=== PATIENT | female | born 1980 | race Caucasian/White ===

== ENCOUNTER 2020-05-10 10:36 | Emergency (ER) | payer SELFPAY ==
[2020-05-10 10:37] VITALS: BP 122/75; PULSE 80; RESP 16; TEMP 37; O2SAT 95; BMI 31.9
[2020-05-10 10:45] VITALS: BP 122/75; PULSE 80; RESP 16; O2SAT 98
--- NOTE | 2020-05-10 11:12 | XRR_ITS ---
PROCEDURE INFORMATION: Exam: XR Left Wrist Exam date and time: 05/10/2020 11:17 AM Age: 39 years old Clinical indication: Injury or trauma; Fall; Blunt trauma (contusions or hematomas); Wrist; Left; Injury date: 05/10/11; Additional info: Deformity TECHNIQUE: Imaging protocol: XR Left wrist. Views: 3 or more views. COMPARISON: No relevant prior studies available. FINDINGS: Bones/joints: Acute severely comminuted and impacted intra-articular fracture of the distal radius with radial displacement and dorsal angulation of the major distal fracture fragment. Acute displaced ulnar styloid avulsion fracture. Stigmata of remote trauma involving the 5th metacarpal. Soft tissues: Soft tissue swelling. XR/XR wrist LT min 3V* [id number] IMPRESSION: 1. Acute severely comminuted and impacted intra-articular fracture of the distal radius with radial displacement and dorsal angulation of the major distal fracture fragment. 2. Acute displaced ulnar styloid avulsion fracture.
--- NOTE | 2020-05-10 11:38 | W.ED.FALL ---
HPI - Fall General: Chief Complaint: Fall Stated Complaint: POSS L ARM FX, BACK PAIN Time Seen by Provider: 05/10/20 10:37 History of Present Illness: HPI Narrative: 39-year-old female who is incarcerated at local skilled nursing fell while in the shower landed on an outstretched left hand is an obvious deformity. Arrives via EMS. Denies striking her head no other injury no loss of consciousness. Later in the visit she also complalined of back pain. MD complaint: fall Onset (ago): minute(s) Fall from: standing Place fall occurred: other (skilled nursing) Loss of consciousness: None Prolonged down time: no Symptoms prior to fall: none Context: tripped/slipped Location of injury: back Location of injury - extremities: Left: forearm (Left wrist distal radius) Quality: sharp Associated symptoms-after fall: Denies abdominal pain, chest pain, confusion, difficulty walking, headache(s), hematuria, lightheadedness, neck pain, numbness, short of breath, vertigo or weakness Review of Systems Const: Denies: fever(s), chills, body aches, change in appetite, fatigue or malaise ENMT: Denies: throat pain, ear or mastoid pain, nasal discharge or nasal congestion Card: Denies: chest pain or lightheadedness Resp: Denies: dyspnea, productive cough or non-productive cough GI: Denies: abdominal pain : Denies: hematuria Musc: Denies: neck pain Skin/Breast: Denies: rash or pruritus Neuro: Denies: headache(s), difficulty walking, vertigo or confusion [facility] Female Reproductive History: Date of last menstrual period: 05/10/20 Physical Exam Const: COMMON NORMALS: no acute distress GENERAL APPEARANCE: cooperative and comfortable ORIENTATION/CONSCIOUSNESS: Yes awake, Yes oriented to person, Yes oriented to place and Yes oriented to time HENMT: COMMON NORMALS: normocephalic, atraumatic, hearing grossly normal bilaterally, external ears normal, EAC's normal, TM's normal bilaterally, Normal nasal mucous membranes and turbinates present, moist oral mucous membranes and oropharynx normal HEAD & SCALP: normocephalic and atraumatic NOSE: Normal nasal mucous membranes and turbinates present EXTERNAL EAR: Yes external ears normal EXTERNAL AUDITORY CANAL: EAC's normal TYMPANIC MEMBRANE: TM's normal bilaterally Eye: COMMON NORMALS: Equal, round and reactive pupils present, EOMs intact bilaterally, conjunctivae normal and no scleral icterus CONJUNCTIVA: Yes conjunctivae normal PUPIL: Yes Equal, round and reactive pupils present Neck/C-Spine: COMMON NORMALS: full ROM, no lymphadenopathy, supple and no JVD Resp: COMMON NORMALS: normal respiratory effort, No retractions, No use of accessory muscles and clear to auscultation bilaterally AUSCULTATION: clear to auscultation bilaterally Cardio: COMMON NORMALS: no JVD, regular rate, regular rhythm and No murmurs present (Cardio) RATE: regular rate RHYTHM: regular rhythm GI: COMMON NORMALS: Soft to palpation and No hepatosplenomegaly present AUSCULTATION: Yes normoactive bowel sounds PALPATION: Yes Soft to palpation, No Tenderness to palpation present (GI), No Guarding due to palpation present (GI) and Yes No hepatosplenomegaly present Back/Pelvis: OTHER: No worsening of pain with palpation along the spine Extremity: OTHER: Obvious deformity of the left distal radius confirmed on x-ray with intra-articular fracture Neuro: SENSORIUM/ORIENTATION: Yes oriented to person, Yes oriented to place and Yes oriented to time Skin: COMMON NORMALS: no rashes or lesions noted GENERAL SKIN EXAM: no rashes or lesions noted Course Vital Signs: Vital signs: Vital Signs Temperature 98.6 F 05/10/20 10:37 Pulse Rate 77 05/10/20 13:35 Respiratory Rate 14 05/10/20 13:35 Blood Pressure 117/76 05/10/20 13:35 Pulse Oximetry 99 05/10/20 13:35 MDM - Fall MDM Narrative: Medical decision making narrative: The end of visit patient also added back pain to her complaint x-rays of the lumbar and thoracic spine I did not appreciate any abnormality after the patient left the radiology read as possible mild compression at T11. We will have case management set her up for CT lumbar and thoracic spine to further evaluate. Also discussed with Dr. Wheat. We reviewed the x-rays and he advised the patient to be splinted and follow-up in the office for surgical reduction later this week. Discharge Plan Discharge Patient Disposition: Home Clinical Impression: Fracture of wrist Condition: Stable Prescriptions: New hydrocodone-acetaminophen 5-325 mg tablet 1 tab PO Q6H PRN (Reason: pain) Qty: 15 RF: 0 No Action No Known Home Medications RF: 0 Discharge Orders: Discharge ED (Routine); Ordered 05/10/20 Ordered By: Juan Huang Referrals: Shaq Wheat DO [Physician] - 05/11/20 8:00 am Chrissie Alas MD [Hospitalist] - Discharge Diet: Usual diet Discharge Activity: Limit activity as instructed Activity Restrictions/Additional Instructions: No use of the left hand. Case management will call with a follow-up appointment with Dr. Wheat at the orthopedic clinic tomorrow. Coding Level of Care Code ED Workers Compensation Claims Supervisor for Sharon Dolan
--- NOTE | 2020-05-10 12:06 | XRR_ITS ---
PROCEDURE INFORMATION: Exam: XR Lumbosacral Spine, 2 or 3 Views Exam date and time: 05/10/2020 1:04 PM Age: 39 years old Clinical indication: Pain and injury or trauma; Fall; Blunt trauma (contusions or hematomas); Low back pain; Injury date: 05/10/20; Additional info: Fall/pain TECHNIQUE: Imaging protocol: XR of the lumbosacral spine, 2 or 3 views. COMPARISON: CT abdomen pelvis w con* [id number] 08/17/2018 10:10 PM FINDINGS: Bones/joints: No acute bony injury or malalignment in the lumbar spine. Mild degenerative change. Intraperitoneal space: Status post cholecystectomy. Gastrointestinal tract: Bowel dilatation and prominent stool. XR/XR lumbar spine 2-3V* [id number] IMPRESSION: No acute bony injury or malalignment in the lumbar spine.
--- NOTE | 2020-05-10 12:06 | XRR_ITS ---
PROCEDURE INFORMATION: Exam: XR Thoracic Spine, 3 Views Exam date and time: 05/10/2020 1:04 PM Age: 39 years old Clinical indication: Pain and injury or trauma; Fall; Blunt trauma (contusions or hematomas); Pain in thoracic spine; Injury date: 05/10/20; Additional info: Pain after fall TECHNIQUE: Imaging protocol: XR of the thoracic spine, 3 views. COMPARISON: No relevant prior studies available. FINDINGS: Bones/joints: Mild T11 compression deformity, of uncertain age. Anatomic alignment. Mild degenerative change. Soft tissues: Normal caliber of the paraspinous soft tissues. XR/XR thoracic spine 3V* [id number] IMPRESSION: Mild T11 compression deformity, of uncertain age.
--- NOTE | 2020-05-10 12:48 | DCPLANNER ---
Addendum entered by Raquel Floyd 05/12/20 11:19: respiratory services manager had message that patient has a questionable T11 compression fracture, classification case manager called the ortho clinic, spoke with Josephine, patient has a follow up appointment for 05.13.[address] Wheat. respiratory services manager asked if a note could be put on patients chart about the compression fracture for physician to review. Original Note: respiratory services manager was asked to schedule a follow up appointment for patient with Dr. Wheat at ortho. respiratory services manager called the ortho clinic, spoke with Nora, gave clinic patients information. A follow up appointment was scheduled for Monday, May 11, 2020 at 8:[address] Wheat. respiratory services manager informed patients nurse of appointment.
[2020-05-10 13:35] VITALS: BP 117/76; PULSE 77; RESP 14; O2SAT 99
[2020-05-10] MEDS: HYDROcodone-acetaminophen 5-325 mg Tablet 1 TAB PO (13:35)
[2020-05-12 14:36] LABS: Coronavirus Test Green County Not Detected
--- NOTE | 2020-05-12 18:26 | PC.NURSE ---
LETTER SENT TO PT D/T NO WORKING PHONE NUMBERS
--- NOTE | 2020-06-10 07:41 | DCPLANNER ---
Patient had a follow up appointment scheduled for 05.10.[address] Wheat at [facility] - patient did attend appointment.
== END 2020-05-10 13:36 | disposition home or self-care (01) ==
LOC: ER 12:47
PROVIDERS: Emergency Provider Family Medicine
DX: S52.572A Other intraarticular fracture of lower end of left radius, initial encounter for closed fracture (principal); W18.2XXA Fall in (into) shower or empty bathtub, initial encounter; Y92.142 Bathroom in prison as the place of occurrence of the external cause
CPT/HCPCS: 12345; 29125; 72072; 72100; 73110; 87635; 99282; 99283

== ENCOUNTER 2020-05-14 10:16 | Day surgery (SDC) | payer SELFPAY ==
[2020-05-14] VITALS (13 sets, daily range): BP systolic 134–191; BP diastolic 92–112; PULSE 98–110; RESP 16–26; TEMP 36.6–36.8; O2SAT 83–99
--- NOTE | 2020-05-14 | XR_ITS ---
WS: [id number] Left forearm, AP and lateral C-arm fluoroscopy views in the OR, 05/14/2020 Clinical Data: ORIF left distal radius Comparison: Left wrist, 05/10/2020. Findings: A ventral plate is attached to the distal left radius with multiple orthopedic screws. The plate is r educing the comminuted distal left radial fracture. There is a simple fracture of the ulnar styloid. XR/XR forearm LT 2V [id number] Impression: Internal fixation of distal left radial fracture.
--- NOTE | 2020-05-14 | SCC_ITS ---
Procedure Done: ORIF intra articular distal radius fracture with greater than 3 parts 16.9 seconds of fluoroscopic guidance, for a cumulative dose of 0.42 mGy, was provided to Dr. Wheat by the radiology department. C-arm images of the LEFT forearm were saved for the patient's permanent record. [facility]
--- NOTE | 2020-05-14 10:57 | ANES.PREANE2 ---
Pre-Anesthetic Assessment Pre-Anesthetic Assessment: Height/Weight: Height 1.65 m Weight 86.636 kg Preop Diagnosis: left distal radius fracture Proposed Procedure: Operation Date: 05/14/20 11:50 Proposed Procedures p ORIF Left Distal Radius(Left) - Shaq Wheat DO Familial anesthetic complications: None Last intake: NPO > 8 hrs Social: Social History: Tobacco and No alcohol Exam: Pre-Anes Outpt Exam: alert, oriented x 3, clear to auscultation bilaterally and regular rate & rhythm Airway: Cervical ROM: WNL MP: 3 Dentition: Chipped Pulmonary: Pulmonary: COPD CV/HEM: CV/HEM: HTN Metabolic: Metabolic: DM Anesthetic Plan: ASA status: 3 Anesthesia: General and Regional (specify below) Risk of > 500 ml blood loss (7ml/kg in children): No PFSH Anesthesia Female Reproductive History: Date of last menstrual period: 05/10/20 Data Anesthesia Cardiac Studies: No Data to Display
[2020-05-14] MEDS: sodium chloride 0.9% 1,000 ML 30 ML IV (11:09)
[2020-05-14] MEDS: fentaNYL 50 mcg/mL INJ 2mL 100 MCG IVP (11:23)
[2020-05-14] MEDS: midazolam 1 mg/mL INJ 5 ML 5 MG IVP (11:23)
[2020-05-14] MEDS: scopolamine 1.5 Patch 1 PATCH TRANSDERMA (11:25)
[2020-05-14 11:28] LABS: OR HCG Qualitative Urine Negative (Negative)
--- NOTE | 2020-05-14 11:28 | ANES.PROC ---
Anesthesia Procedures Procedure/Date: 05/14/20 Nerve Block ^: Nerve Block 1: Main Anesthesia: general anesthesia Time Out Performed: Yes Consent: requested by attending/covering physician, from patient, risks and benefits reviewed and patient agrees to proceed Nerve block location: axillary (+ musculocutaneous (L)) Anesthesia monitors applied: pulse oximetry, EKG, BP cuff and oxygen Nerve block position: supine Anesthetic Used: with decadron (4 mg) Amount of anesthesia used (mL): 30 Ultrasound used to: recognize landmarks and visualize and ID brachial plexus Nerve Stimulator Used?: No Interscalene/Femoral BLK: 2 stimuplex 22 g needle used for position and inplane approach and visualize local anesthetic spread Injection: neg aspiration of heme (incidence of aspiration of heme, needle withdrawn, tubing re-primed, no further aspiration) Patient Tolerated Procedure: well Complications: none
--- NOTE | 2020-05-14 12:07 | W.PM.OPSUD ---
Surgery/Procedure H&P Update DATE OF PROCEDURE: May 14, 2020 DATE H&P PERFORMED: 05/13/20 H&P UPDATE INFORMATION: I have reviewed H&P completed within last 30 days, I have examined patient prior to procedure and No changes to prior documentation PREOP DIAGNOSIS: left distal radius fracture PLANNED PROCEDURE: Operation Date: 05/14/20 11:50 Proposed Procedures p ORIF Left Distal Radius(Left) - Shaq Wheat DO
--- NOTE | 2020-05-14 13:02 | PM.OP ---
Operative Report Date of procedure: May 14, 2020 Pre-op Diagnosis: left distal radius fracture >3 intra articular parts Post-op diagnosis: same Procedure Done: ORIF intra articular distal radius fracture with greater than 3 parts Anesthesia: General Estimated blood loss (mL): 5 Condition: stable Disposition: PACU Procedure: ORIF intra articular distal radius fracture with greater than 3 parts Patient is brought to the operative suite placed in the supine position tourniquet was applied all areas and patient well-padded. The left arm was prepped and draped in normal sterile fashion. Skin incision is made over the left volar wrist. FCR is identified along with radial artery. The incisions made through the fascia. In the tissues were reflected ulnarly and radially between the interval of the radial artery and the FCR. Pronator quadratus was reflected ulnarly. Fracture was identified and reduced using a Hector. Intra-articular pieces were piece together and held reduced with a [id number] reduction clamp. Then a Geovanna distal radius plate was placed 3 screws were placed distally 2 screws proximally wounds were irrigated and closed with Vicryl and Monocryl suture sterile dressings applied patient was placed in a volar splint and transferred to the PACU in stable condition.
[2020-05-14] MEDS: HYDROcodone-acetaminophen 5-325 mg Tablet 1 TAB PO (14:36)
--- NOTE | 2020-05-14 15:29 | ANE.PACU2 ---
Inpatient post-anesthesia follow up: Airway intact: Yes Vital signs: Temperature 98 F Pulse Rate 110 Respiratory Rate 18 Blood Pressure 189/94 Pulse Oximetry 96 Oxygen Delivery Me thod Room Air Oxygen Flow Rate Fraction of Inspir ed Oxygen Hydration adequate: Yes Nausea and vomiting: No Pain level: 1 Mental status: Baseline
== END 2020-05-14 14:50 | disposition home or self-care (01) ==
PROVIDERS: Anesthesiology; Visit Provider Orthopaedic Surgery
PROC: (CPT 25609; principal; 2020-05-14 11:50)
DX: S52.572A Other intraarticular fracture of lower end of left radius, initial encounter for closed fracture (principal); W19.XXXA Unspecified fall, initial encounter; J44.9 Chronic obstructive pulmonary disease, unspecified; I10 Essential (primary) hypertension; E11.9 Type 2 diabetes mellitus without complications
CPT/HCPCS: 25609; 12345; 64417; 73090; 76000; 76942; 81025; 84703; 96374; 96375; C1713; J0690; J1100; J2250; J2405; J2704; J2795; J3010; J7030

== ENCOUNTER 2020-05-23 09:51 | Emergency (ER) | payer SELFPAY ==
[2020-05-23 10:02] VITALS: BP 141/91; PULSE 88; RESP 20; TEMP 36.6; O2SAT 100; BMI 33.3
[2020-05-23] MEDS: HYDROcodone-acetaminophen 7.5-325 mg Tablet 1 TAB PO (10:59)
[2020-05-23 11:04] VITALS: RESP 20; TEMP 36.6; O2SAT 100
--- NOTE | 2020-05-23 14:53 | ED_ITS ---
HPI - Extremity Problem General: Chief complaint: Extremity Problem,Nontraumatic Stated complaint: LEFT WRIST SURGERY/PAIN Time Seen by Provider: 05/23/20 10:04 History of Present Illness: HPI Narrative: Patient complains about left wrist pain. Ran out of pain medicine the other day. Has not been using ice [id number] medicines not been keeping arm elevated. Complaint: extremity pain Onset (ago): day(s) Pain Consistency: constant Location: left Severity scale (1-10): 8 Quality: aching Relieving factors: nothing Exacerbating factors: nothing Associated symptoms: Reports no associated symptoms; Deny fever(s) Review of Systems Const: Denies: fever(s), chills or body aches Musc: Reports: extremity pain (Extremity pain postsurgical pain is not changed since surgery) and other (Patient has seen Dr. Wheat office this past week with pain) Psych: Denies: anxiety or depression [facility] ED Female Reproductive History: Date of last menstrual period: 05/10/20 Physical Exam Const: COMMON NORMALS: patient oriented x3 and healthy appearing Extremity: RIGHT UPPER EXTREMITY: Yes lower arm (Appears normal mild swelling no redness) and Yes hand & digits (Hand is puffy no redness has full range of motion of digits neuro exam norm) Neuro: COMMON NORMALS: patient oriented x3 Psych: COMMON NORMALS: cooperative APPEARANCE: Yes other Course Vital Signs: Vital signs: Vital Signs Temperature 97.8 F 05/23/20 11:04 Pulse Rate 88 05/23/20 10:02 Respiratory Rate 20 H 05/23/20 11:04 Blood Pressure 141/91 05/23/20 10:02 Pulse Oximetry 100 05/23/20 11:04 MDM - Extremity (Nontraumatic) MDM Narrative: Medical decision making narrative: Patient is to call Dr. Wheat's office on Sunday and go over her pain symptoms that she is having in the meantime she should be applying ice wearing her splint take Tylenol and/or ibuprofen for discomfort and try to keep the hand elevated above the heart level. Discharge Plan Discharge Patient Disposition: Home Clinical Impression: Post-operative pain Condition: Stable Prescriptions: New acetaminophen-codeine 300-15 mg tablet 1 tab PO Q6H PRN (Reason: pain) Qty: 10 RF: 0 No Action hydrocodone-acetaminophen 5-325 mg tablet 1 - 2 tab PO .Q4-6H Qty: 40 RF: 0 hydrocodone-acetaminophen 5-325 mg tablet 1 tab PO Q6H PRN (Reason: pain) Qty: 15 RF: 0 Discharge Orders: Discharge ED (Routine); Ordered 05/23/20 Ordered By: Roberto Schuster Discharge Diet: Usual diet Discharge Activity: Increase activity as tolerated Patient Instructions: Opioid Safety Activity Restrictions/Additional Instructions: Contact Dr. Wheat's office tomorrow and discuss symptoms. Wear sling and are keep hand elevated to the heart level. Apply ice as necessary to help with discomfort. Can take ibuprofen and/or Tylenol to help with discomfort as per label instructions. Coding Level of Care Code ED Pain Management Specialist for Sharon Dolan
== END 2020-05-23 11:05 | disposition home or self-care (01) ==
PROVIDERS: Emergency Provider Nurse Practitioner Family
DX: G89.18 Other acute postprocedural pain (principal)
CPT/HCPCS: 99282

== ENCOUNTER → 2020-06-04 09:03 | Outpatient (BNVA) | payer SELFPAY | PROVIDERS: Visit Provider Orthopaedic Surgery | DX: Z47.89 Encounter for other orthopedic aftercare (principal); S52.502D Unspecified fracture of the lower end of left radius, subsequent encounter for closed fracture with routine healing; X58.XXXD Exposure to other specified factors, subsequent encounter | CPT/HCPCS: 73110 ==

== ENCOUNTER 2020-12-13 11:35 | Emergency (ER) | payer MEDICAID, SELFPAY ==
[2020-12-13 11:42] VITALS: BP 134/83; PULSE 99; RESP 20; TEMP 36.6; O2SAT 99; BMI 31.6
--- NOTE | 2020-12-13 11:58 | W.ED.EXTPRO ---
HPI - Extremity Problem General: Chief complaint: Extremity Injury, Lower Stated complaint: Rt foot Pain Time Seen by Provider: 12/13/20 11:55 History of Present Illness: HPI Narrative: Patient is a 40-year-old female comes to the ED with right foot pain. Injury occurred 2 days ago. Patient says she was walking in some flip-flops and rolled her right ankle. She now has significant pain and swelling to the right foot and ankle. She has been unable to bear weight on it and rates the pain a 10 out of 10. She has been taking Aleve to help with pain. She is also been wrapping her right ankle and foot with an Akhil wrap to help with swelling. Associated symptoms: Deny chest pain, fever(s) or rash Review of Systems Const: Denies: fever(s), chills or fatigue Eyes: Denies: change in vision or eye discomfort ENMT: Denies: throat pain, odynophagia, nasal discharge or nasal congestion Card: Denies: chest pain, palpitations, edema, swelling of feet/ankles, dyspnea on exertion or orthopnea Resp: Denies: dyspnea, productive cough or non-productive cough GI: Denies: abdominal pain, nausea, vomiting, diarrhea, constipation or hematochezia : Denies: flank pain, dysuria or hematuria Musc: Reports: extremity pain (right foot and ankle) and extremity swelling (right foot and ankle); Denies: neck pain or back pain Skin/Breast: Denies: rash or new lesions Neuro: Denies: headache(s), numbness in extremities or weakness in extremities [facility] ED Female Reproductive History: Date of last menstrual period: 05/10/20 Physical Exam Const: COMMON NORMALS: no acute distress, patient oriented x3 and alert GENERAL APPEARANCE: cooperative and comfortable HENMT: COMMON NORMALS: normocephalic HEAD & SCALP: normocephalic MOUTH: Normal oral and palatal mucosa present THROAT: posterior oropharynx normal and uvula midline Neck/C-Spine: COMMON NORMALS: supple GENERAL: Yes normal visual inspection Resp: COMMON NORMALS: normal respiratory effort, No retractions, No use of accessory muscles and clear to auscultation bilaterally AUSCULTATION: clear to auscultation bilaterally Cardio: COMMON NORMALS: regular rate, regular rhythm, S1 normal heart sound present, S2 normal heart sound present, No gallops present (Cardio), No clicks present (Cardio), No murmurs present (Cardio) and Peripheral pulses 2+ throughout RATE: regular rate RHYTHM: regular rhythm HEART SOUNDS: S1 normal heart sound present and S2 normal heart sound present PERIPHERAL PULSES: Peripheral pulses 2+ throughout GI: COMMON NORMALS: Normal to inspection, nondistended, normoactive bowel sounds present, Soft to palpation, non-tender and no masses PALPATION: Yes Soft to palpation : COMMON NORMALS: Yes no CVA tenderness BLADDER/KIDNEY EXAM: Yes no CVA tenderness Back/Pelvis: COMMON NORMALS: no CVA tenderness Extremity: NARRATIVE EXTREMITY EXAM: Patient has significant swelling and ecchymosis to right foot and ankle. Neurovascular tact distally. Most of her pain is on the lateral aspect of her midfoot and over the lateral malleolus. Limited range of motion in ankle due to pain. Findings suggestive of a significant ankle sprain or potential fracture. Neuro: COMMON NORMALS: patient oriented x3 and moves all extremities SENSORIUM/ORIENTATION: Yes alert Skin: GENERAL SKIN EXAM: dry skin Course Vital Signs: Vital signs: Vital Signs Temperature 97.9 F 12/13/20 11:42 Pulse Rate 99 12/13/20 11:42 Respiratory Rate 20 H 12/13/20 11:42 Blood Pressure 134/83 12/13/20 11:42 Pulse Oximetry 99 12/13/20 11:42 MDM - Extremity (Nontraumatic) MDM Narrative: Medical decision making narrative: Patient is a 40-year-old female who comes in the ED with right foot and ankle pain and swelling. No visible deformity noted. Significant edema and ecchymosis noted on right foot and ankle. Tenderness over lateral midfoot and over lateral malleolus. Neurovascular tact distally. X-ray showed fifth metatarsal fracture and distal fibula fracture. Patient was put in a posterior leg splint with stirrup and discharged home with crutches. I placed order with transplant case manager for patient be referred to orthopedic for follow-up. Patient was discharged home with prescription for hydrocodone for pain. Return to ED precautions given. Patient stood agree with plan. Imaging Data^: Xray Ortho: Attestation: I personally reviewed and interpreted this imaging study as follows: Radiologist's impression: [address] [place] [address] XRay Report Signed Patient: Alessia Villarreal Unit #: [id number] : 1980 Age/Sex: 40 / F ADM Date: 12/13/20 Loc: ER Room/Bed: Attending Dr: Ordering Provider/Ordering MD: Thomas Rebolledo Date of Service: 12/13/20 Procedure(s): XR ankle RT min 3V* 74667 Accession Number(s): [id number] Report Number: [id number] PROCEDURE INFORMATION: Exam: XR Right Ankle Exam date and time: 12/13/2020 12:04 PM Age: 40 years old Clinical indication: Injury or trauma; Fall; Blunt trauma; Bilateral; Injury details: Fell 2 days ago pain swelling and bruising to entire foot/ankle; Additional info: Injury with swelling and pain TECHNIQUE: Imaging protocol: XR Right ankle. Views: 3 or more views. COMPARISON: No relevant prior studies available. FINDINGS: Bones/joints: Age-indeterminate, minimally displaced fracture of the distal fibula, below the level of the joint line, likely chronic. Comminuted, essentially nondisplaced fracture the 5th metatarsal base. No dislocation. Tiny plantar calcaneal spur. Soft tissues: Diffuse soft tissue swelling. XR/XR ankle RT min 3V* 10300 IMPRESSION: 1. Comminuted, essentially nondisplaced fracture the 5th metatarsal base. 2. Age-indeterminate, minimally displaced fracture of the distal fibula, below the level of the joint line, likely chronic. 3. Additional findings, as above. Dictated By: Maverick Jordan MD Signed By: Maverick Jordan MD Signed Date/Time: 12/13/20 1306 DD/ [address] [address] XRay Report Signed Patient: Alessia Villarreal Unit #: [id number] : 1980 Age/Sex: 40 / F ADM Date: 12/13/20 Loc: ER Room/Bed: Attending Dr: Ordering Provider/Ordering MD: Thomas Rebolledo Date of Service: 12/13/20 Procedure(s): XR foot RT min 3V* 62035 Accession Number(s): [id number] Report Number: [id number] PROCEDURE INFORMATION: Exam: XR Right Foot Exam date and time: 12/13/2020 12:04 PM Age: 40 years old Clinical indication: Injury or trauma; Fall; Blunt trauma; Bilateral; Injury details: Fell 2 days ago pain swelling bruising to entire foot/ankle; Additional info: Injury with swelling and pain TECHNIQUE: Imaging protocol: XR Right foot. Views: 3 or more views. COMPARISON: No relevant prior studies available. FINDINGS: Bones/joints: Comminuted, essentially nondisplaced fracture the 5th metatarsal base. Age-indeterminate deformity the 4th proximal phalanx and fibular hallux sesamoid. No dislocation. Tiny plantar calcaneal spur. Soft tissues: Diffuse soft tissue swelling. XR/XR foot RT min 3V* 55296 IMPRESSION: 1. Comminuted, essentially nondisplaced fracture the 5th metatarsal base. 2. Age-indeterminate deformity the 4th proximal phalanx and fibular hallux sesamoid. 3. Additional findings, as above. Dictated By: Maverick Jordan MD Signed By: Maverick Jordan MD Signed Date/Time: 12/13/20 1309 DD/ 1307 Discharge Plan Discharge Patient Disposition: Home Clinical Impression: Fracture of distal end of fibula Qualifiers: Encounter type: initial encounter Fracture type: closed Fracture morphology: other fracture Laterality: right Qualified Code(s): S82.831A - Other fracture of upper and lower end of right fibula, initial encounter for closed fracture Metatarsal fracture Qualifiers: Encounter type: initial encounter Metatarsal bone: fifth Fracture type: closed Fracture alignment: nondisplaced Laterality: right Qualified Code(s): S92.354A - Nondisplaced fracture of fifth metatarsal bone, right foot, initial encounter for closed fracture Condition: Stable Prescriptions: No Action hydrocodone-acetaminophen [[place]] 5-325 mg tablet 1 tab PO Q6H PRN (Reason: pain) 7 Days Qty: 60 RF: 0 Discharge Orders: Discharge ED (Routine); Ordered 12/13/20 Ordered By: Thomas Rebolledo Discharge Diet: Regular Discharge Activity: Limit activity as instructed and Use walker/crutches as instructed Patient Instructions: Ankle Fracture (ED), Ankle Stirrup Splint (ED), Opioid Safety Activity Restrictions/Additional Instructions: Follow-up with medical provider as directed. Case management will contact you in the next several days to set up an appointment with orthopedic doctor. Take medications as prescribed. No weightbearing and use crutches to ambulate. Keep splint on and dry. Return to the ER or your medical provider if condition worsens. Please read and understand discharge instructions. Thank you for choosing [facility] for your healthcare needs today. Please realize this is an emergency room and that we are providing you with a medical screening exam and this may not be complete and all inclusive of all the testing and or work up that you may need to determine your ailment or severity of your illness. It is very important that you follow up as instructed or that you return to the Emergency Department should you have concerns or if your condition changes or worsens in any way. Coding Level of Care Code ED Senior Safety Support Manager for Sharon Dolan Exam Comprehensive
--- NOTE | 2020-12-13 12:04 | XRR_ITS ---
PROCEDURE INFORMATION: Exam: XR Right Ankle Exam date and time: 12/13/2020 12:04 PM Age: 40 years old Clinical indication: Injury or trauma; Fall; Blunt trauma; Bilateral; Injury details: Fell 2 days ago pain swelling and bruising to entire foot/ankle; Additional info: Injury with swelling and pain TECHNIQUE: Imaging protocol: XR Right ankle. Views: 3 or more views. COMPARISON: No relevant prior studies available. FINDINGS: Bones/joints: Age-indeterminate, minimally displaced fracture of the distal fibula, below the level of the joint line, likely chronic. Comminuted, essentially nondisplaced fracture the 5th metatarsal base. No dislocation. Tiny plantar calcaneal spur. Soft tissues: Diffuse soft tissue swelling. XR/XR ankle RT min 3V* 06126 IMPRESSION: 1. Comminuted, essentially nondisplaced fracture the 5th metatarsal base. 2. Age-indeterminate, minimally displaced fracture of the distal fibula, below the level of the joint line, likely chronic. 3. Additional findings, as above.
--- NOTE | 2020-12-13 12:04 | XRR_ITS ---
PROCEDURE INFORMATION: Exam: XR Right Foot Exam date and time: 12/13/2020 12:04 PM Age: 40 years old Clinical indication: Injury or trauma; Fall; Blunt trauma; Bilateral; Injury details: Fell 2 days ago pain swelling bruising to entire foot/ankle; Additional info: Injury with swelling and pain TECHNIQUE: Imaging protocol: XR Right foot. Views: 3 or more views. COMPARISON: No relevant prior studies available. FINDINGS: Bones/joints: Comminuted, essentially nondisplaced fracture the 5th metatarsal base. Age-indeterminate deformity the 4th proximal phalanx and fibular hallux sesamoid. No dislocation. Tiny plantar calcaneal spur. Soft tissues: Diffuse soft tissue swelling. XR/XR foot RT min 3V* 67767 IMPRESSION: 1. Comminuted, essentially nondisplaced fracture the 5th metatarsal base. 2. Age-indeterminate deformity the 4th proximal phalanx and fibular hallux sesamoid. 3. Additional findings, as above.
[2020-12-13] MEDS: HYDROcodone-acetaminophen 7.5-325 mg Tablet 1 TAB PO (12:12)
--- NOTE | 2020-12-15 08:33 | DCPLANNER ---
Addendum entered by Raquel Floyd 12/17/20 16:35: hse manager spoke with Mallika at ortho - was told that patient cancelled appointment that was scheduled, and did not reschedule at this time. Original Note: hse manager had message to schedule a follow up appointment for patient with ortho. hse manager called the ortho clinic, spoke with Mallika, gave clinic patients information. hse manager was told that patients information would be printed and reviewed. Clinic will call patient with appointment information.
== END 2020-12-13 14:04 | disposition home or self-care (01) ==
PROVIDERS: Emergency Provider Physician Assistant
DX: S82.831A Other fracture of upper and lower end of right fibula, initial encounter for closed fracture (principal); S92.354A Nondisplaced fracture of fifth metatarsal bone, right foot, initial encounter for closed fracture; X50.1XXA Overexertion from prolonged static or awkward postures, initial encounter
CPT/HCPCS: 29515; 73610; 73630; 99283; E0114

== ENCOUNTER 2021-04-27 13:45 | Emergency (ER) | payer MEDICAID, SELFPAY ==
[2021-04-27 13:52] VITALS: BP 139/80; PULSE 97; RESP 16; TEMP 37; O2SAT 98; BMI 31.6
--- NOTE | 2021-04-27 14:08 | XR_ITS ---
WS: [id number] Exam: XR chest 1V portable [id number] Date/Time of Exam: 04/27/2021 2:22 PM Reason For Exam: dyspnea/cough Comparison 06/27/2018. The lungs are clear and fully inflated. Normal cardiomediastinal structures. No pleural effusion. Bon y elements are intact. Soft tissue calcification along the left humeral head that might indicate calc ific bursitis. XR/XR chest 1V portable [id number] IMPRESSION: 1. No acute cardiopulmonary finding.
--- NOTE | 2021-04-27 14:08 | W.ED.COVID ---
HPI - COVID General: Chief Complaint: COVID symptoms Stated Complaint: sob Time Seen by Provider: 04/27/21 14:06 Triage information: Has fever, cough or shortness of breath. No known COVID + exposure last 14 days History of Present Illness: HPI Narrative: 40-year-old female presents emergency room complaining of cough congestion COVID-like symptoms low-grade fever myalgias. Cough is nonproductive symptoms been going on for 4 days. No vomiting no diarrhea cough is nonproductive MD complaint: has COVID symptoms Prior covid testing: no COVID 19 common symptoms: positive fever(s), chills, cough, non-productive cough, dyspnea, fatigue, body aches, throat pain and nasal congestion; negative nausea, vomiting or diarrhea COVID 19 other sytmptoms: negative chest pain or requiring oxygen Onset (ago): day(s) (4) Severity: mild Pertinent comorbid conditions: obesity Treatment prior to arrival: acetaminophen and ibuprofen COVID Results: Nasal/Oral Coronavirus 2019 PCR Not detected 05/11/20 08:26 05/11/20 Review of Systems Const: Reports: fever(s), chills, body aches and fatigue ENMT: Reports: throat pain and nasal congestion Card: Denies: chest pain, edema, dyspnea on exertion or orthopnea Resp: Reports: dyspnea and non-productive cough GI: Denies: abdominal pain, nausea, vomiting, hematemesis, coffee ground emesis, diarrhea, constipation, bloating, hematochezia or melena : Denies: flank pain, difficulty voiding, dysuria, urinary frequency or urinary urgency Skin/Breast: Denies: rash or pruritus PFSH ED PFSH: Medical History (Updated 04/27/21 @ 15:02 by Juan Huang DO) No significant past medical history Surgical History (Updated 04/27/21 @ 15:02 by Juan Huang DO) No significant past surgical history Social History (Updated 04/27/21 @ 15:02 by Juan Huang DO) Smoking and tobacco status: current some day smoker Female Reproductive History: Date of last menstrual period: 05/10/20 Physical Exam Const: GENERAL APPEARANCE: cooperative and comfortable ORIENTATION/CONSCIOUSNESS: Yes awake, Yes oriented to person, Yes oriented to place and Yes oriented to time HENMT: COMMON NORMALS: normocephalic, atraumatic and hearing grossly normal bilaterally HEAD & SCALP: normocephalic and atraumatic Resp: AUSCULTATION: crackles and wheezes Cardio: COMMON NORMALS: regular rate, regular rhythm and No murmurs present (Cardio) RATE: regular rate RHYTHM: regular rhythm GI: COMMON NORMALS: Soft to palpation and No hepatosplenomegaly present AUSCULTATION: Yes normoactive bowel sounds PALPATION: Yes Soft to palpation, No Tenderness to palpation present (GI), No Guarding due to palpation present (GI) and Yes No hepatosplenomegaly present Extremity: COMMON NORMALS: normal to inspection, capillary refill normal, no clubbing, cyanosis or edema, no calf tenderness and no pedal edema Neuro: SENSORIUM/ORIENTATION: Yes oriented to person, Yes oriented to place and Yes oriented to time Skin: COMMON NORMALS: no rashes or lesions noted GENERAL SKIN EXAM: no rashes or lesions noted Course Vital Signs: Vital signs: Vital Signs Temperature 98.6 F 04/27/21 13:52 Pulse Rate 96 04/27/21 14:49 Respiratory Rate 16 04/27/21 14:49 Blood Pressure 164/66 04/27/21 14:49 Pulse Oximetry 99 04/27/21 14:49 MDM - COVID MDM Narrative: Medical decision making narrative: Patient is stable clinically suspect COVID. Will discharge home COVID PCR is pending. Recommend self quarantine until results are back. Any worsening or change symptoms return to the emergency room. COVID Results: Nasal/Oral Coronavirus 2019 PCR Not detected 05/11/20 08:26 05/11/20 Discharge Plan Discharge Patient Disposition: Home Clinical Impression: Suspected COVID-19 virus infection Condition: Stable Prescriptions: New albuterol sulfate 90 mcg/actuation HFA aerosol inhaler 2 inh INHALATION Q4H PRN (Reason: shortness of breath or wheezing) Qty: 18 RF: 0 No Action hydrocodone-acetaminophen [[place]] 5-325 mg tablet 1 tab PO Q6H PRN (Reason: pain) 7 Days Qty: 60 RF: 0 Discharge Orders: Discharge ED (Routine); Ordered 04/27/21 Ordered By: Juan Huang Patient Instructions: COVID-19 (Coronavirus Disease 2019) (ED), Opioid Safety Coding Level of Care Code ED Gerontological Nurse Practitioner for Chg Fwd Exam Comprehensive
[2021-04-27 14:47] VITALS: O2SAT 98
--- NOTE | 2021-04-27 14:48 | PC.NURSE ---
sack lunch given to patient, patient verbalizes understanding of all instructions, follow up and need to fill prescription, patient ambulated from the ED
[2021-04-27 14:49] VITALS: BP 164/66; PULSE 96; RESP 16; O2SAT 99
[2021-04-29 06:02] LABS: Quest SARS-CoV-2 RNA DETECTED (NOT DETECTED)
== END 2021-04-27 15:06 | disposition home or self-care (01) ==
PROVIDERS: Emergency Provider Family Medicine
DX: U07.1 COVID-19 (principal); E66.9 Obesity, unspecified; Z68.31 Body mass index [BMI] 31.0-31.9, adult; F17.200 Nicotine dependence, unspecified, uncomplicated
CPT/HCPCS: 71045; 87635; 99283

== ENCOUNTER 2022-03-25 14:39 | Emergency (ER) | payer MEDICAID, SELFPAY ==
[2022-03-25 14:40] VITALS: BP 110/71; PULSE 127; RESP 20; TEMP 37.2; O2SAT 95; BMI 29.9
--- NOTE | 2022-03-25 14:40 | ED_ITS ---
HPI - Abdominal Pain General: Chief Complaint: Abdominal Pain Stated Complaint: LEFT FLANK PAIN Time Seen by Provider: 03/25/22 14:40 History of Present Illness: 41-year-old female comes in today with complaints of left side back pain. Patient also reports no bowel movement in several days. Patient states that she has used methamphetamines today. Patient reports being kicked out of the house by her . Patient states that she had her tubes tied after her last . Patient endorses stress incontinence with sneezing. Patient appears nontoxic. Patient appears under the influence. EMS had given ketorolac in route for pain. Associated Symptoms: Reports constipation; Denies diarrhea, fever(s), nausea and vomiting Related Data: Date of Last Menstrual Period: 05/10/20 Review of Systems Const: Denies: fever(s) GI: Reports: abdominal pain and constipation; Denies: nausea, vomiting or diarrhea : Reports: flank pain and urinary incontinence (Stress incontinence) Musc: Reports: back pain [facility] PFSH: Medical History (Updated 03/25/22 @ 19:29 by KAYKAY Medina) No significant past medical history Surgical History (Updated 04/27/21 @ 15:02 by Juan Huang DO) No significant past surgical history Social History (Updated 04/27/21 @ 15:02 by Juan Huang DO) Smoking and tobacco status: current some day smoker Female Reproductive History: Date of last menstrual period: 05/10/20 Physical Exam Const: COMMON NORMALS: alert HENMT: COMMON NORMALS: normocephalic HEAD & SCALP: normocephalic Eye: GENERAL EYE: appearance normal, both eyes and all related structures Neck/C-Spine: COMMON NORMALS: full ROM Resp: COMMON NORMALS: normal respiratory effort and clear to auscultation bilaterally AUSCULTATION: clear to auscultation bilaterally Cardio: COMMON NORMALS: regular rhythm RATE: tachycardic RHYTHM: regular rhythm GI: AUSCULTATION: Yes normoactive bowel sounds PALPATION: Yes Tenderness to palpation present (GI) Details: LUQ : BLADDER/KIDNEY EXAM: Yes CVA tenderness on the left Back/Pelvis: GENERAL BACK: Yes CVA tenderness LUMBAR SPINE/LOWER BACK: Yes paraspinal muscle tenderness Lumbar paraspinal muscle tenderness: left Extremity: COMMON NORMALS: normal to inspection Neuro: SENSORIUM/ORIENTATION: Yes alert Skin: COMMON NORMALS: turgor normal GENERAL SKIN EXAM: turgor normal Course Vital Signs: Vital signs: Vital Signs Temperature 99.0 F 03/25/22 14:40 Pulse Rate 97 03/25/22 16:43 Respiratory Rate 16 03/25/22 16:43 Blood Pressure 111/63 03/25/22 16:43 Pulse Oximetry 97 03/25/22 16:43 Oxygen Delivery Me thod 03/25/22 16:43 MDM - Abdominal Pain Medical Decision Making 41-year-old female comes in today with complaints of left flank pain. On exam patient has tenderness in the left paraspinous muscles of the back. Abdomen soft with normal active bowel sounds. Patient endorses stress incontinence, methamphetamine use, constipation, left flank pain. Vital signs note some elevation in pulse rate in the 120s. Differential diagnosis includes pyelonephritis, UTI, renal calculi, constipation, diverticulitis, substance ab use. CT noted some mild hydronephrosis of the left kidney may be suggestive of recently passed kidney stone or mild pyelonephritis. Laboratory values noted a white count of 11,000, CMP had a creatinine 1.0, sodium was 128, and urine had an increase in white blood cells at 25-40 and positive nitrates. Recommend treatment for urinary tract infection with 1 g of Rocephin and cefdinir to complete. Encourage plenty of fluids and follow-up with primary care for recheck of urine. Recommend patient follow-up with primary care in 2 to 3 days for recheck. Patient reported understanding. Lab Data 03/25/22 14:45 03/25/22 14:45 Labs/Radiology: Radiology Impressions Abdomen/Pelvis CT 03/25/22 15:14 IMPRESSION: 1. Duplicated left renal collecting system with mild hydroureteronephrosis as well as mild swelling of the left kidney etiology of which is unclear. Consider recently passed ureteral stone, distal ureteral stricture or left-sided pyelonephritis. 2. Moderate splenomegaly increased in size from previous exam. 3. Moderate hepatomegaly, stable. 4. Additional findings as above. Laboratory Results WBC 11.4 10^3/uL (4.0-10.0) H 03/25/22 14:45 RBC 4.25 10^6/uL (4.1-5.3) 03/25/22 14:45 Hgb 9.7 g/dL (11.5-15.3) L 03/25/22 14:45 Hct 31.0 % (37.0-47.0) L 03/25/22 14:45 MCV 72.9 fl (81-99) L 03/25/22 14:45 MCH 22.8 pg (28.0-34.0) L 03/25/22 14:45 MCHC 31.3 g/dL (30.0-36.0) 03/25/22 14:45 RDW 15.1 % (12.1-15.1) 03/25/22 14:45 Plt Count 191 10^3/cmm (130-400) 03/25/22 14:45 MPV 11.5 fL (7.4-10.4) H 03/25/22 14:45 Neut % (Auto) 81.6 % 03/25/22 14:45 Lymph % (Auto) 8.7 % 03/25/22 14:45 [place] % (Auto) 8.7 % 03/25/22 14:45 Eos % (Auto) 0.1 % 03/25/22 14:45 Baso % (Auto) 0.3 % 03/25/22 14:45 Neut # (Auto) 9.28 10^3/uL (1.8-7.7) H 03/25/22 14:45 Lymph # (Auto) 1.0 10^3/uL (0.8-4.8) 03/25/22 14:45 [place] # (Auto) 1.0 10^3/uL (0.2-0.9) H 03/25/22 14:45 Eos # (Auto) 0.0 10^3/uL (0.0-0.8) 03/25/22 14:45 Baso # (Auto) 0.0 10^3/uL (0.0-0.1) 03/25/22 14:45 Nucleated RBC % (auto) 0 % 03/25/22 14:45 Nucleated RBCs # 0.0 /100WBC 03/25/22 14:45 Sodium 128 mmol/L (136-145) L 03/25/22 14:45 Potassium 3.7 mmol/L (3.5-5.1) 03/25/22 14:45 Chloride 91 mmol/L (98-107) L 03/25/22 14:45 Carbon Dioxide 25 mmol/L (22-29) 03/25/22 14:45 Anion Gap 15.7 (5-19) 03/25/22 14:45 BUN 22 mg/dL (6-20) H 03/25/22 14:45 Creatinine 1.0 mg/dL (0.5-0.9) H 03/25/22 14:45 GFR Calculation 61.7 mL/min (90-130) L 03/25/22 14:45 Glucose 124 mg/dL (65-115) H 03/25/22 14:45 Calculated Osmolality 271 mOsm/kg (285-295) L 03/25/22 14:45 Calcium 9.1 mg/dL (8.5-10.5) 03/25/22 14:45 Total Bilirubin 0.4 mg/dL (0.15-1.2) 03/25/22 14:45 AST 22 U/L (0-32) 03/25/22 14:45 ALT 17 U/L (0-33) 03/25/22 14:45 Alkaline Phosphatase 213 U/L (35-105) H 03/25/22 14:45 Total Protein 8.2 g/dL (6.6-8.7) 03/25/22 14:45 Albumin 3.0 g/dL (3.5-5.2) L 03/25/22 14:45 Globulin 5.2 g/dL (1.3-4.6) H 03/25/22 14:45 Lipase 12 U/L (13-60) L 03/25/22 14:45 HCG, Qual Negative (Negative) 03/25/22 14:45 Urine Color Yellow (Yellow) 03/25/22 17:45 Urine Appearance Cloudy (CLEAR) A 03/25/22 17:45 Urine pH 5 (5-7) 03/25/22 17:45 Ur Specific [place] 1.010 (1.005-1.030) 03/25/22 17:45 Urine Protein 3+ (Negative) H 03/25/22 17:45 Urine Glucose (UA) Norm (Normal) 03/25/22 17:45 Urine Ketones Negative (Negative) 03/25/22 17:45 Urine Blood 3+ (Negative) H 03/25/22 17:45 Urine Nitrate Positive (Negative) H 03/25/22 17:45 Urine Bilirubin Neg (Negative) 03/25/22 17:45 Urine Urobilinogen 8 mg/dL (Negative) H 12 17:45 Ur Leukocyte Esterase 1+ (Negative) H 03/25/22 17:45 Urine RBC 0-4 /hpf (0-2) H 03/25/22 17:45 Urine WBC 25-40 /hpf (0-5) H 03/25/22 17:45 Ur Squamous Epith Cells 0-4 /hpf (0-5) H 12 17:45 Amorphous Sediment Not Reportable 03/25/22 17:45 Urine Bacteria 4+ /hpf (NONE) H 03/25/22 17:45 Discharge Plan Discharge Patient Disposition: Home Clinical Impression: UTI (urinary tract infection) due to Enterococcus, Methamphetamine abuse Condition: Stable Prescriptions: New cefdinir 300 mg capsule 300 mg PO BID Qty: 10 0RF No Action hydrocodone-acetaminophen [[place]] 5-325 mg tablet 1 tab PO Q6H PRN (Reason: pain) 7 Days Qty: 60 0RF albuterol sulfate 90 mcg/actuation HFA aerosol inhaler 2 inh INHALATION Q4H PRN (Reason: shortness of breath or wheezing) Qty: 18 0RF Discharge Orders: Discharge ED (Routine); Ordered 03/25/22 Ordered By: Woody Villafuerte Discharge Diet: Usual diet Discharge Activity: Increase activity as tolerated Patient Instructions: Urinary Tract Infection in Women (ED) Activity Restrictions/Additional Instructions: Drink plenty of water. Take antibiotics as directed. Follow-up with primary care for further instruction. Return to ED for new concerns. Coding Level of Care Code ED Filing And Polishing Supervisor for Chg Fwd Exam Comprehensive
[2022-03-25 14:50] VITALS: BP 110/71; PULSE 125; RESP 20; O2SAT 100
[2022-03-25 14:51] LABS: Basophils % 0.3 %; Eosinophils % 0.1 %; Hemoglobin 9.7 g/dL (11.5-15.3); Lymphocytes % 8.7 %; Mean Corpuscular HGB Conc 31.3 g/dL (30.0-36.0); Mean Corpuscular Hemoglobin 22.8 pg (28.0-34.0); Mean Corpuscular Volume 72.9 fl (81-99); Mean Platelet Volume 11.5 fL (7.4-10.4); Monocytes % 8.7 %; Neutrophils # 9.28 10^3/uL (1.8-7.7); Neutrophils % 81.6 %; Nucleated Red Blood Cells % 0 %; Platelet Count 191 10^3/cmm (130-400); Red Blood Count 4.25 10^6/uL (4.1-5.3); Red Cell Distribution Width 15.1 % (12.1-15.1); White Blood Count 11.4 10^3/uL (4.0-10.0)
[2022-03-25] MEDS: diphenhydrAMINE 50 mg/mL SDV 1mL 12.5 MG IVP (14:59)
[2022-03-25] MEDS: haloperidol inj 5 mg/mL INJ 1 mL 2.5 MG IVP (15:01)
--- NOTE | 2022-03-25 15:14 | CTR_ITS ---
PROCEDURE INFORMATION: Exam: CT Abdomen And Pelvis Without Contrast Exam date and time: 03/25/2022 4:30 PM Age: 41 years old Clinical indication: Abdominal pain; Additional info: Left flank pain TECHNIQUE: Imaging protocol: Computed tomography of the abdomen and pelvis without contrast. Radiation optimization: All CT scans at this facility use at least one of these dose optimization techniques: automated exposure control; mA and/or kV adjustment per patient size (includes targeted exams where dose is matched to clinical indication); or iterative reconstruction. COMPARISON: CT abdomen pelvis w con* [id number] 08/17/2018 10:10 PM RADIATION DOSE METRICS: Total DLP (mGy-cm): 840.91 FINDINGS: Lungs: Lung bases are clear. Liver: Liver is moderately enlarged unchanged. Gallbladder and bile ducts: Gallbladder has been removed. Bile ducts are not appreciably dilated. Pancreas: Normal. No ductal dilation. Spleen: Spleen is moderately enlarged measuring 16 x 16 cm increased in size from previous exam. Adrenal glands: Normal. No mass. Kidneys and ureters: Left kidney is mildly enlarged and appears swollen when compared to the earlier study. There is duplicated left renal collecting system that appears to terminate just proximal to the ureteral insertion. There is the mild hydroureteronephrosis ending near the left ureterovesical junction etiology of which is unclear. Findings may be due to recently passed stone, distal ureteral stricture or left-sided pyelonephritis. Right kidney collecting system is unremarkable. Stomach and bowel: Unremarkable. No obstruction. No mucosal thickening. Appendix: No evidence of appendicitis. Intraperitoneal space: Unremarkable. No free air. No significant fluid collection. Vasculature: Unremarkable. No abdominal aortic aneurysm. Lymph nodes: Unremarkable. No enlarged lymph nodes. Urinary bladder: Unremarkable as visualized. Reproductive: Thereis a small nodular calcification left ovary developed from previous exam likely dystrophic in nature. Small right ovarian cyst likely physiological in nature. Bones/joints: There are compression deformities involving the superior endplates of T11 and T12 vertebral bodies that have developed from previous exam. No acute fracture. Soft tissues: There is a moderate size fat containing periumbilical hernia, unchanged. CT/CT kidney stone [id number] IMPRESSION: 1. Duplicated left renal collecting system with mild hydroureteronephrosis as well as mild swelling of the left kidney etiology of which is unclear. Consider recently passed ureteral stone, distal ureteral stricture or left-sided pyelonephritis. 2. Moderate splenomegaly increased in size from previous exam. 3. Moderate hepatomegaly, stable. 4. Additional findings as above.
[2022-03-25 15:45] LABS: HCG, Serum Qual Negative (Negative)
[2022-03-25 15:49] LABS: Alanine Aminotransferase 17 U/L (0-33); Alkaline Phosphatase 213 U/L (35-105); Anion Gap 15.7 (5-19); Aspartate Amino Transferase 22 U/L (0-32); Blood Urea Nitrogen 22 mg/dL (6-20); Calcium 9.1 mg/dL (8.5-10.5); Carbon Dioxide 25 mmol/L (22-29); Chloride 91 mmol/L (98-107); Globulin 5.2 g/dL (1.3-4.6); Glomerular Filtration Rate 61.7 mL/min (90-130); Glucose 124 mg/dL (65-115); Lipase 12 U/L (13-60); Osmolality Calculated 271 mOsm/kg (285-295); Potassium 3.7 mmol/L (3.5-5.1); Sodium 128 mmol/L (136-145); Total Bilirubin 0.4 mg/dL (0.15-1.2); Total Protein 8.2 g/dL (6.6-8.7)
[2022-03-25 16:01] VITALS: BP 103/67; PULSE 113; RESP 14; O2SAT 93
[2022-03-25] MEDS: sodium chloride 0.9% 1,000 ML 999 ML IV ×2 (16:10→18:19)
[2022-03-25 16:43] VITALS: BP 111/63; PULSE 97; RESP 16; O2SAT 97
[2022-03-25 18:09] LABS: Glucose Urine UA Norm (Normal); Protein Urine 3+ (Negative); Urine Appearance Cloudy (CLEAR); Urine Color Yellow (Yellow); pH Urine 5 (5-7)
[2022-03-25 18:10] LABS: Add Urine Microscopic? YES; Bilirubin Urine Neg (Negative); Blood Urine 3+ (Negative); Ketones Urine Negative (Negative); Leukocyte Esterase Urine 1+ (Negative); Nitrate Urine Positive (Negative); Urobilinogen Urine 8 mg/dL (Negative)
[2022-03-25 18:11] LABS: Add Urine Culture? Yes; Bacteria Urine 4+ /hpf; RBC Urine 0-4 /hpf (0-2); Squamous Epithelial Cell Urine 0-4 /hpf (0-5); WBC Urine 25-40 /hpf (0-5)
[2022-03-25] MEDS: cefTRIAXone 1,000 MG in sodium chloride 0.9% (plus) 50 ML 100 MG IV (18:19)
[2022-03-25 19:49] VITALS: BP 125/73; PULSE 85; RESP 16; O2SAT 98
== END 2022-03-25 19:50 | disposition home or self-care (01) ==
PROVIDERS: Emergency Provider Nurse Practitioner Family
DX: N39.0 Urinary tract infection, site not specified (principal); B95.2 Enterococcus as the cause of diseases classified elsewhere; F15.10 Other stimulant abuse, uncomplicated; F17.210 Nicotine dependence, cigarettes, uncomplicated
CPT/HCPCS: 74176; 80053; 81001; 83690; 84703; 85025; 87077; 87086; 87186; 96361; 96374; 96375; 99285; J0696; J1200; J1630; J7030

== ENCOUNTER 2023-08-24 23:10 | Emergency (ER) | payer MEDICAID, SELFPAY ==
[2023-08-24 23:11] VITALS: BMI 31.2
--- NOTE | 2023-08-24 23:16 | ECG_ITS ---
[facility] Test Date: 2023-08-24 Pat Name: Alessia Villarreal Department: Room: Gender: Female Manager Database Administration: : 1980 Requested By: Tee Guzman Order Number: [id number] Oscar MD: Gerry Dykes M.D. Measurements Intervals [place] Rate: 75 P: 52 [place]: 207 QRS: 22 QRSD: 116 T: 24 QT: 396 QTc: 445 Interpretive Statements SINUS RHYTHM INCOMPLETE RIGHT BUNDLE BRANCH BLOCK [90+ ms QRS DURATION, TERMINAL R IN V1/V2, 40+ ms S IN I/aVL/V4/V5/V6] Compared to ECG 06/06/2018 16:38:28 Incomplete right bundle-branch block now present Sinus tachycardia no longer present Electronically Signed On 08-25-2023 12:11:50 CDT by Gerry Dykes M.D. [id number] jodi
--- NOTE | 2023-08-24 23:16 | XRR_ITS ---
PROCEDURE INFORMATION: Exam: XR Chest Exam date and time: 08/24/2023 11:25 PM Age: 42 years old Clinical indication: Pain; Shortness of breath; Chest pressure; Prior surgery; Surgery date: 6+ months; Surgery type: Gb; Patient HX: C/O chest discomfort with SOB; Additional info: Chest pain TECHNIQUE: Imaging protocol: Radiologic exam of the chest. Views: 1 view. COMPARISON: CR XR chest 1V portable [id number] 04/27/2021 2:42 PM FINDINGS: Lungs: The lungs are clear. No pulmonary consolidation. Pleural spaces: No pleural effusion or pneumothorax. Heart/Mediastinum: The cardiomediastinal silhouette is within normal limits. Bones/joints: No acute osseous abnormalities are seen. Intraperitoneal space: Prominent subdiaphragmatic bowel. XR/XR chest 1V portable [id number] IMPRESSION: No acute cardiopulmonary disease.
[2023-08-24 23:41] LABS: Troponin(5th) Baseline < 6 ng/L (0-10)
[2023-08-24 23:42] LABS: HCG, Serum Qual Negative (Negative)
[2023-08-24 23:43] LABS: Basophils % 0.3 %; Eosinophils # 0.3 10^3/uL (0.0-0.8); Hematocrit 32.9 % (36-47); Lymphocytes # 1.4 10^3/uL (0.8-4.8); Mean Corpuscular HGB Conc 31.9 g/dL (30-55); Mean Corpuscular Hemoglobin 26.4 pg (27-33); Mean Corpuscular Volume 82.7 fl (85-98); Mean Platelet Volume 10.1 fL (7.4-10.4); Monocytes # 0.6 10^3/uL (0.2-0.9); Monocytes % 9.1 %; Neutrophils # 4.47 10^3/uL (1.8-7.7); Neutrophils % 66.3 %; Nucleated Red Blood Cells % 0 %; Platelet Count 258 10^3/cmm (157-399); Red Blood Count 3.98 10^6/uL (3.85-5.65); Red Cell Distribution Width 14.1 % (12.1-15.1); White Blood Count 6.74 10^3/uL (3.29-11.43)
--- NOTE | 2023-08-24 23:44 | ED_ITS ---
HPI - Chest Pain 2 General: Chief Complaint: Chest Pain Stated Complaint: Chest pain Time Seen by Provider: 08/24/23 23:13 History of Present Illness: 42-year-old female with no prior history of coronary disease. She presents with chest discomfort that started while she was lying in bed. She had been upset, as her family member would not let her talk to her son. She also started new anxiety medication, in the form of olanzapine and topiramate today for the first time. She believes these are playing a role as well. Pain is now resolved. Associated symptoms: Reports dyspnea and palpitations; Deny abdominal pain, fever(s) or vomiting Review of Systems 2 Const: Denies: fever(s) ENMT: Denies: throat pain Card: Reports: chest pain and palpitations Resp: Reports: dyspnea; Denies: productive cough or non-productive cough GI: Denies: abdominal pain or vomiting Skin/Breast: Denies: rash Neuro: Reports: numbness in extremities; Denies: headache(s) or weakness in extremities Psych: Reports: anxiety PFSH ED 2 PFSH: Medical History No significant past medical history Surgical History No significant past surgical history Social History Smoking and tobacco/nicotine status: current some day tobacco/nicotine user Physical Exam 2 Const: COMMON NORMALS: no acute distress GENERAL APPEARANCE: cooperative and lethargic (Mildly); not ill appearing and not frail appearing ORIENTATION/CONSCIOUSNESS: Yes lethargic (Mildly) HENMT: COMMON NORMALS: normocephalic, atraumatic and Normal external nose present HEAD & SCALP: normocephalic and atraumatic FACE & SINUS: normal facial exam and face symmetric NOSE: Normal external nose present Eye: COMMON NORMALS: Equal, round and reactive pupils present and EOMs intact bilaterally PUPIL: Yes Equal, round and reactive pupils present Neck/C-Spine: GENERAL: Yes trachea midline Chest: CHEST: Yes Symmetrical chest wall rise Resp: COMMON NORMALS: normal respiratory effort, No retractions, No use of accessory muscles and clear to auscultation bilaterally AUSCULTATION: clear to auscultation bilaterally Cardio: COMMON NORMALS: regular rate and regular rhythm RATE: regular rate RHYTHM: regular rhythm GI: COMMON NORMALS: Normal to inspection, nondistended, normoactive bowel sounds present Extremity: COMMON NORMALS: no pedal edema Neuro: CORINA COMA SCALE: document GCS findings Corina coma scale eye opening: Spontaneous Corina coma scale verbal response: Orientated Corina coma scale motor response: Obey commands Corina coma scale total score: 15 S ENSORIUM/ORIENTATION: Yes lethargic (Mildly) SENSORY EXAM: Yes extremities (intact) Psych: COMMON NORMALS: speech normal SPEECH: Yes normal speech Skin: COMMON NORMALS: no rashes or lesions noted GENERAL SKIN EXAM: no rashes or lesions noted Course 2 Vital Signs: Vital signs: Vital Signs Pulse Rate 73 08/25/23 00:52 Blood Pressure 110/69 08/25/23 00:52 Pulse Oximetry 98 08/25/23 00:52 MDM - Chest Pain Medical Decision Making This patient's vitals have been stable. Chest pain is resolved. Chest x-ray is negative. Hemoglobin is stable at 10.5. BMP is normal. Troponin is nondetectable. Lipase is 18. No other findings. EKG shows a sinus rhythm with incomplete bundle branch block on the right. No acute ST wave changes. [place] is normal. Rate is 75. With resolution of her symptoms, she will be allowed discharge. To return for any return of symptoms Lab Data 08/24/23 23:16 08/24/23 23:16 Radiology Impressions Chest X-Ray 08/24/23 23:16 IMPRESSION: No acute cardiopulmonary disease. Laboratory Results WBC 6.74 10^3/uL (3.29-11.43) 08/24/23 23:16 RBC 3.98 10^6/uL (3.85-5.65) 08/24/23 23:16 Hgb 10.50 g/dL (11.27-16.99) L 08/24/23 23:16 Hct 32.9 % (36-47) L 08/24/23 23:16 MCV 82.7 fl (85-98) L 08/24/23 23:16 MCH 26.4 pg (27-33) L 08/24/23 23:16 MCHC 31.9 g/dL (30-55) 08/24/23 23:16 RDW 14.1 % (12.1-15.1) 08/24/23 23:16 Plt Count 258 10^3/cmm (157-399) 08/24/23 23:16 MPV 10.1 fL (7.4-10.4) 08/24/23 23:16 Neut % (Auto) 66.3 % 08/24/23 23:16 Lymph % (Auto) 20.0 % 08/24/23 23:16 [place] % (Auto) 9.1 % 08/24/23 23:16 Eos % (Auto) 4.0 % 08/24/23 23:16 Baso % (Auto) 0.3 % 08/24/23 23:16 Neut # (Auto) 4.47 10^3/uL (1.8-7.7) 08/24/23 23:16 Lymph # (Auto) 1.4 10^3/uL (0.8-4.8) 08/24/23 23:16 [place] # (Auto) 0.6 10^3/uL (0.2-0.9) 08/24/23 23:16 Eos # (Auto) 0.3 10^3/uL (0.0-0.8) 08/24/23 23:16 Baso # (Auto) 0.0 10^3/uL (0.0-0.1) 08/24/23 23:16 Nucleated RBC % (auto) 0 % 08/24/23 23:16 Nucleated RBCs # 0.0 /100WBC 08/24/23 23:16 Sodium 134 mmol/L (136-145) L 08/24/23 23:16 Potassium 3.7 mmol/L (3.5-5.1) 08/24/23 23:16 Chloride 99 mmol/L (98-107) 08/24/23 23:16 Carbon Dioxide 25 mmol/L (22-29) 08/24/23 23:16 Anion Gap 13.7 (5-19) 08/24/23 23:16 BUN 14 mg/dL (6-20) 08/24/23 23:16 Creatinine 0.6 mg/dL (0.5-0.9) 08/24/23 23:16 GFR Calculation 110.7 mL/min (90-130) 08/24/23 23:16 Glucose 105 mg/dL (65-115) 08/24/23 23:16 Calculated Osmolality 279 mOsm/kg (285-295) L 08/24/23 23:16 Calcium 8.5 mg/dL (8.5-10.5) 08/24/23 23:16 Total Bilirubin 0.2 mg/dL (0.15-1.2) 08/24/23 23:16 AST 79 U/L (0-32) H 08/24/23 23:16 ALT 93 U/L (0-33) H 08/24/23 23:16 Alkaline Phosphatase 150 U/L (35-105) H 08/24/23 23:16 Troponin T Baseline < 6 ng/L (0-10) 08/24/23 23:16 NT-Pro-B Natriuret Pep < 36 pg/mL (0-125) 08/24/23 23:16 Total Protein 8.1 g/dL (6.6-8.7) 08/24/23 23:16 Albumin 4.0 g/dL (3.5-5.2) 08/24/23 23:16 Globulin 4.1 g/dL (1.3-4.6) 08/24/23 23:16 Lipase 18 U/L (13-60) 08/24/23 23:16 HCG, Qual Negative (Negative) 08/24/23 23:16 All radiology interpretation(s) finalized by discharge Discharge Plan Discharge Patient Disposition: Home Clinical Impression: Chest pain Condition: Stable Prescriptions: No Action hydrocodone-acetaminophen [[place]] 5-325 mg tablet 1 tab PO Q6H PRN (Reason: pain) 7 Days Qty: 60 0RF sulfamethoxazole-trimethoprim [Bactrim DS] 800-160 mg tablet 1 tab PO BID 7 Days Qty: 14 0RF mupirocin 2 % ointment 1 applic topical BID Qty: 15 0RF albuterol sulfate 90 mcg/actuation HFA aerosol inhaler 2 inh INHALATION Q4H PRN (Reason: shortness of breath or wheezing) Qty: 18 0RF Discharge Orders: Discharge ED (Routine); Ordered 08/25/23 Ordered By: Tee Enrique Patient Instructions: Chest Pain (ED), Opioid Safety, Pain Management Activity Restrictions/Additional Instructions: Return for any return of your symptoms including chest discomfort, shortness of breath, numbness or tingling, other concerns. See your doctor next week for follow-up. Coding Level of Care Code ED Handyman for Sharon Dolan
[2023-08-24 23:51] LABS: Alanine Aminotransferase 93 U/L (0-33); Alkaline Phosphatase 150 U/L (35-105); Anion Gap 13.7 (5-19); Aspartate Amino Transferase 79 U/L (0-32); Blood Urea Nitrogen 14 mg/dL (6-20); Calcium 8.5 mg/dL (8.5-10.5); Carbon Dioxide 25 mmol/L (22-29); Chloride 99 mmol/L (98-107); Creatinine Clr Calc Pharmacy 134.4063; Globulin 4.1 g/dL (1.3-4.6); Glomerular Filtration Rate 110.7 mL/min (90-130); Glucose 105 mg/dL (65-115); Lipase 18 U/L (13-60); NT Pro B Type Natriuretic Pept < 36 pg/mL (0-125); Osmolality Calculated 279 mOsm/kg (285-295); Potassium 3.7 mmol/L (3.5-5.1); Sodium 134 mmol/L (136-145); Total Bilirubin 0.2 mg/dL (0.15-1.2); Total Protein 8.1 g/dL (6.6-8.7)
[2023-08-25 00:52] VITALS: BP 110/69; PULSE 73; O2SAT 98
[2023-08-25 01:19] VITALS: PULSE 74; RESP 16; O2SAT 98
[2023-08-25 01:20] VITALS: PULSE 74; RESP 16; O2SAT 98
[2023-08-25 01:40] LABS: Troponin 5 2HR Delta 0.00001 ABS# (0-10)
== END 2023-08-25 01:33 | disposition home or self-care (01) ==
PROVIDERS: Emergency Provider Emergency Medicine
DX: R07.9 Chest pain, unspecified (principal); F17.200 Nicotine dependence, unspecified, uncomplicated
CPT/HCPCS: 36415; 71045; 80053; 83690; 83880; 84484; 84703; 85025; 93005; 99285

== ENCOUNTER 2023-08-26 13:13 | Emergency (ER) | payer MEDICAID, SELFPAY ==
[2023-08-26 13:17] VITALS: BP 119/77; PULSE 79; RESP 18; TEMP 36.9; O2SAT 97
[2023-08-26 13:56] LABS: Basophils % 0.5 %; Eosinophils # 0.2 10^3/uL (0.0-0.8); Eosinophils % 3.6 %; Hematocrit 31.8 % (36-47); Lymphocytes # 1.4 10^3/uL (0.8-4.8); Lymphocytes % 21.3 %; Mean Corpuscular HGB Conc 31.1 g/dL (30-55); Mean Corpuscular Hemoglobin 26.5 pg (27-33); Mean Platelet Volume 9.7 fL (7.4-10.4); Monocytes # 0.8 10^3/uL (0.2-0.9); Monocytes % 12.3 %; Neutrophils # 4.13 10^3/uL (1.8-7.7); Nucleated Red Blood Cells % 0 %; Platelet Count 243 10^3/cmm (157-399); Red Blood Count 3.74 10^6/uL (3.85-5.65); Red Cell Distribution Width 14.4 % (12.1-15.1); White Blood Count 6.66 10^3/uL (3.29-11.43)
[2023-08-26 14:08] LABS: HCG, Serum Qual Negative (Negative)
[2023-08-26 14:11] LABS: Alanine Aminotransferase 172 U/L (0-33); Albumin Level 3.8 g/dL (3.5-5.2); Alkaline Phosphatase 174 U/L (35-105); Anion Gap 13.8 (5-19); Aspartate Amino Transferase 73 U/L (0-32); Blood Urea Nitrogen 18 mg/dL (6-20); Calcium 8.3 mg/dL (8.5-10.5); Carbon Dioxide 22 mmol/L (22-29); Chloride 107 mmol/L (98-107); Creatinine Clr Calc Pharmacy 134.4063; Globulin 4.3 g/dL (1.3-4.6); Glomerular Filtration Rate 110.7 mL/min (90-130); Glucose 143 mg/dL (65-115); Lipase 9 U/L (13-60); Osmolality Calculated 292 mOsm/kg (285-295); Potassium 3.8 mmol/L (3.5-5.1); Sodium 139 mmol/L (136-145); Total Bilirubin 0.2 mg/dL (0.15-1.2); Total Protein 8.1 g/dL (6.6-8.7)
--- NOTE | 2023-08-26 14:38 | W.ED.ABDPA2 ---
HPI - Abdominal Pain General: Chief Complaint: Abdominal Pain Stated Complaint: abd pain Time Seen by Provider: 08/26/23 14:24 History of Present Illness: Patient says she got out of prison just a few days ago which has been having diarrhea since. She has had some nausea and vomiting. She is having upper abdominal pain. She says her abdomen feels hard. Lab work been drawn in the waiting room. I went and saw her in the room and discussed getting a CT scan. Apparently shortly after this she left AMA. Related Data: Date of Last Menstrual Period: 08/17/23 Review of Systems Narrative: Constitutional symptoms: Negative except as documented in HPI. Skin symptoms: Negative except as documented in HPI. Eye symptoms: Negative except as documented in HPI. ENMT symptoms: Negative except as documented in HPI. Respiratory symptoms: Negative except as documented in HPI. Cardiovascular symptoms: Negative except as documented in HPI. Gastrointestinal symptoms: Negative except as documented in HPI. Genitourinary symptoms: Negative except as documented in HPI. Musculoskeletal symptoms: Negative except as documented in HPI. Neurologic symptoms: Negative except as documented in HPI. Psychiatric symptoms: Negative except as documented in HPI. Endocrine symptoms: Negative except as documented in HPI. [facility] ED PFSH: Medical History No significant past medical history Surgical History No significant past surgical history Social History Smoking and tobacco/nicotine status: current some day tobacco/nicotine user Female Reproductive History: Date of last menstrual period: 08/17/23 Physical Exam Narrative: EXAM NARRATIVE: General: Alert, no acute distress. Skin: Warm, dry. Head: Normocephalic, atraumatic. Neck: Supple, trachea midline. Eye: Extraocular movements are intact. Ears, nose, mouth and throat: mucosa moist. Cardiovascular: Regular, Normal peripheral perfusion. Respiratory: Lungs are clear to auscultation, respirations are non-labored, breath sounds are equal, Symmetrical chest wall expansion. Gastrointestinal: Soft, diffuse upper abdominal pain, Non distended, Normal bowel sounds. Musculoskeletal: Normal ROM, no deformity. Neurological: Alert and oriented, No focal neurological deficit observed. Psychiatric: Cooperative, appropriate mood & affect. Course Vital Signs: Vital signs: Vital Signs Temperature 98.4 F 08/26/23 13:17 Pulse Rate 79 08/26/23 13:17 Respiratory Rate 18 08/26/23 13:17 Blood Pressure 119/77 08/26/23 13:17 Pulse Oximetry 97 08/26/23 13:17 Oxygen Delivery Me thod Room Air 08/26/23 13:17 MDM - Abdominal Pain Medical Decision Making Lab work was fairly unremarkable other than some mild elevation in her LFTs that has been present in the past. CT was ordered. Morphine and Zofran and fluids were ordered. Apparently patient left AMA prior to receiving any of this Lab Data 08/26/23 13:45 08/26/23 13:45 Labs/Radiology: Laboratory Results WBC 6.66 10^3/uL (3.29-11.43) 08/26/23 13:45 RBC 3.74 10^6/uL (3.85-5.65) L 08/26/23 13:45 Hgb 9.90 g/dL (11.27-16.99) L 08/26/23 13:45 Hct 31.8 % (36-47) L 08/26/23 13:45 MCV 85.0 fl (85-98) 08/26/23 13:45 MCH 26.5 pg (27-33) L 08/26/23 13:45 MCHC 31.1 g/dL (30-55) 08/26/23 13:45 RDW 14.4 % (12.1-15.1) 08/26/23 13:45 Plt Count 243 10^3/cmm (157-399) 08/26/23 13:45 MPV 9.7 fL (7.4-10.4) 08/26/23 13:45 Neut % (Auto) 62.0 % 08/26/23 13:45 Lymph % (Auto) 21.3 % 08/26/23 13:45 [place] % (Auto) 12.3 % 08/26/23 13:45 Eos % (Auto) 3.6 % 08/26/23 13:45 Baso % (Auto) 0.5 % 08/26/23 13:45 Neut # (Auto) 4.13 10^3/uL (1.8-7.7) 08/26/23 13:45 Lymph # (Auto) 1.4 10^3/uL (0.8-4.8) 08/26/23 13:45 [place] # (Auto) 0.8 10^3/uL (0.2-0.9) 08/26/23 13:45 Eos # (Auto) 0.2 10^3/uL (0.0-0.8) 08/26/23 13:45 Baso # (Auto) 0.0 10^3/uL (0.0-0.1) 08/26/23 13:45 Nucleated RBC % (auto) 0 % 08/26/23 13:45 Nucleated RBCs # 0.0 /100WBC 08/26/23 13:45 Sodium 139 mmol/L (136-145) 08/26/23 13:45 Potassium 3.8 mmol/L (3.5-5.1) 08/26/23 13:45 Chloride 107 mmol/L (98-107) 08/26/23 13:45 Carbon Dioxide 22 mmol/L (22-29) 08/26/23 13:45 Anion Gap 13.8 (5-19) 08/26/23 13:45 BUN 18 mg/dL (6-20) 08/26/23 13:45 Creatinine 0.6 mg/dL (0.5-0.9) 08/26/23 13:45 GFR Calculation 110.7 mL/min (90-130) 08/26/23 13:45 Glucose 143 mg/dL (65-115) H 08/26/23 13:45 Calculated Osmolality 292 mOsm/kg (285-295) 08/26/23 13:45 Calcium 8.3 mg/dL (8.5-10.5) L 08/26/23 13:45 Total Bilirubin 0.2 mg/dL (0.15-1.2) 08/26/23 13:45 AST 73 U/L (0-32) H 08/26/23 13:45 ALT 172 U/L (0-33) H 08/26/23 13:45 Alkaline Phosphatase 174 U/L (35-105) H 08/26/23 13:45 Total Protein 8.1 g/dL (6.6-8.7) 08/26/23 13:45 Albumin 3.8 g/dL (3.5-5.2) 08/26/23 13:45 Globulin 4.3 g/dL (1.3-4.6) 08/26/23 13:45 Lipase 9 U/L (13-60) L 08/26/23 13:45 HCG, Qual Negative (Negative) 08/26/23 13:45 No radiology studies performed this visit Discharge Plan Discharge Patient Disposition: Left Against Medical Advice Clinical Impression: Abdominal pain Condition: Stable Prescriptions: No Action Imodium 2 mg Capsule 2 mg PO Q6H PRN (Reason: Diarrhea) bismuth subsalicylate [Pepto-Bismol] 262 mg/15 mL Suspension 524 mg PO Q1H PRN (Reason: Indigestion) Rx Instructions: do not exceed 8 doses in a 24 hour period olanzapine 5 mg Tablet 5 mg PO QPM propranolol 20 mg Tablet 20 mg PO DAILY PRN (Reason: Anxiety) bupropion HCl 150 mg Tablet Extended Release 24 Hr 150 mg PO QAM topiramate 50 mg Tablet 50 mg PO BEDTIME Patient Instructions: Abdominal Pain (ED) Coding Level of Care Code ED Commercial Front Load Operator for Sharon Dolan
[2023-08-26 14:44] VITALS: BP 119/77; PULSE 79; RESP 18; TEMP 36.9; O2SAT 97
[2023-08-26 14:49] LABS: Add Urine Microscopic? YES; Bilirubin Urine 1+ (Negative); Blood Urine Neg (Negative); Glucose Urine UA Norm (Normal); Ketones Urine Negative (Negative); Leukocyte Esterase Urine Negative (Negative); Nitrate Urine Negative (Negative); Protein Urine Neg (Negative); Urine Appearance Hazy (CLEAR); Urine Color Yellow (Yellow); Urobilinogen Urine Norm (Negative); pH Urine 5 (5-7)
[2023-08-26 14:50] LABS: Add Urine Culture? No; Bacteria Urine 1+ /hpf; WBC Urine 0-4 /hpf (0-5)
== END 2023-08-26 14:53 | disposition left against medical advice (07) ==
PROVIDERS: Nurse Practitioner Family; Emergency Provider Emergency Medicine
DX: R10.10 Upper abdominal pain, unspecified (principal); Z53.29 Procedure and treatment not carried out because of patient's decision for other reasons; Z72.0 Tobacco use
CPT/HCPCS: 36415; 80053; 81001; 83690; 84703; 85025; 99283

== ENCOUNTER 2023-08-27 16:53 | Emergency (ER) | payer MEDICAID, SELFPAY ==
[2023-08-27 16:53] VITALS: PULSE 86; TEMP 36.7; O2SAT 96; BMI 30.7
--- NOTE | 2023-08-27 16:56 | XRR_ITS ---
PROCEDURE INFORMATION: Exam: XR Abdomen Exam date and time: 08/27/2023 5:18 PM Age: 42 years old Clinical indication: Abdominal pain; Acute; Prior surgery; Surgery date: 6+ months; Surgery type: Gb TECHNIQUE: Imaging protocol: Radiologic exam of the abdomen. Views: 2 Views. Upright and supine views. COMPARISON: CT angio chest w abd pel w con 07/30/2018 11:16 PM FINDINGS: Lungs: Lungs are clear bilaterally. Pleural spaces: No pleural effusion. No pneumothorax. Heart/Mediastinum: EightStable mild enlargement of the cardiac silhouette. Mediastinal contours are unremarkable. Gastrointestinal tract: Dilated proximal colon measuring up to 9.9 cm at the cecum. Intraperitoneal space: No free intraperitoneal air. Organs: Surgical clips in the right upper quadrant consistent with a previous cholecystectomy. Bones/joints: Multilevel degenerative changes of varying severity in the visualized spine. XR/XR acute abdomen series [id number] IMPRESSION: 1. Dilated proximal colon measuring up to 9.9 cm at the cecum. Findings may suggest a distal obstruction versus localized colonic ileus. No small bowel dilatation. 2. Incidental/nonacute findings are listed in the report.
[2023-08-27 17:17] LABS: Basophils % 0.1 %; Eosinophils # 0.3 10^3/uL (0.0-0.8); Eosinophils % 3.9 %; Hematocrit 32.5 % (36-47); Lymphocytes # 1.6 10^3/uL (0.8-4.8); Lymphocytes % 23.2 %; Mean Corpuscular HGB Conc 31.7 g/dL (30-55); Mean Corpuscular Hemoglobin 26.7 pg (27-33); Mean Corpuscular Volume 84.2 fl (85-98); Monocytes # 0.7 10^3/uL (0.2-0.9); Monocytes % 10.7 %; Neutrophils # 4.25 10^3/uL (1.8-7.7); Neutrophils % 61.5 %; Nucleated Red Blood Cells % 0 %; Platelet Count 257 10^3/cmm (157-399); Red Blood Count 3.86 10^6/uL (3.85-5.65); Red Cell Distribution Width 14.6 % (12.1-15.1); White Blood Count 6.91 10^3/uL (3.29-11.43)
--- NOTE | 2023-08-27 17:23 | ED_ITS ---
HPI - Abdominal Pain 2 General: Chief Complaint: Abdominal Pain Stated Complaint: abd pain,distention, constipation Time Seen by Provider: 08/27/23 16:53 History of Present Illness: 42-year-old female with a history of dep ression and methamphetamine abuse who has been in the methamphetamine rehab locally for about 7 days now. She is developed abdominal pain for about the last 3 days. She says her abdomen is felt bloated. She has not been having solid stools but rather having some diarrhea. No nausea or vomiting. No fevers. Review of Systems 2 Narrative: Constitutional symptoms: Negative except as documented in HPI. Skin symptoms: Negative except as documented in HPI. Eye symptoms: Negative except as documented in HPI. ENMT symptoms: Negative except as documented in HPI. Respiratory symptoms: Negative except as documented in HPI. Cardiovascular symptoms: Negative except as documented in HPI. Gastrointestinal symptoms: Negative except as documented in HPI. Genitourinary symptoms: Negative except as documented in HPI. Musculoskeletal symptoms: Negative except as documented in HPI. Neurologic symptoms: Negative except as documented in HPI. Psychiatric symptoms: Negative except as documented in HPI. Endocrine symptoms: Negative except as documented in HPI. PFSH ED 2 PFSH: Medical History No significant past medical history Surgical History No significant past surgical history Social History Smoking and tobacco/nicotine status: current some day tobacco/nicotine user Physical Exam 2 Narrative: EXAM NARRATIVE: General: Alert, no acute distress. Skin: Warm, dry. Head: Normocephalic, atraumatic. Neck: Supple, trachea midline. Eye: Extraocular movements are intact. Ears, nose, mouth and throat: mucosa moist. Cardiovascular: Regular, Normal peripheral perfusion. Respiratory: Lungs are clear to auscultation, respirations are non-labored, breath sounds are equal, Symmetrical chest wall expansion. Gastrointestinal: Soft, Nontender, Non distended, Normal bowel sounds. Musculoskeletal: Normal ROM, no deformity. Neurological: Alert and oriented, No focal neurological deficit observed. Psychiatric: Cooperative, appropriate mood & affect. Course 2 Vital Signs: Vital signs: Vital Signs Temperature 98.0 F 08/27/23 16:53 Pulse Rate 81 08/27/23 18:15 Blood Pressure 147/88 08/27/23 18:15 Pulse Oximetry 94 08/27/23 18:15 Oxygen Delivery Me thod Room Air 08/27/23 18:15 MDM - Abdominal Pain Medical Decision Making Medical decision making: Differential diagnosis including but not limited to and based on the above HPI, review of systems and physical exam: Constipation, bowel obstruction, UTI, diverticulitis Orders placed to evaluate differential diagnosis based on the above differential, HPI and physical exam Lab Review: Laboratory results were reviewed and interpreted by myself the emergency room physician. Lab work is unremarkable. White count is 6. Hemoglobin is 10.3. BUN and creatinine are 10 and 0.5. Urinalysis is negative. CT of the abdomen pelvis shows no acute process. This was reviewed and interpreted by myself emergency room physician. I also reviewed the radiologist report. I reviewed the patient's medical record. Reexamination: Patient remained stable with no increased work of breathing. No altered mental status. No focal motor deficits. Assessment and plan: Abdominal pain -[place] in the emergency room. - Discharged home - Discussed plan with patient. Answered any questions. - Evaluation and treatment of this problem were appropriate in the emergency setting. Lab Data 08/27/23 16:37 08/27/23 16:37 Labs/Radiology: Radiology Impressions Chest/Abdomen X-ray 08/27/23 16:56 IMPRESSION: 1. Dilated proximal colon measuring up to 9.9 cm at the cecum. Findings may suggest a distal obstruction versus localized colonic ileus. No small bowel dilatation. 2. Incidental/nonacute findings are listed in the report. Abdomen/Pelvis CT 08/27/23 17:49 IMPRESSION: 1. Mild dilatation of the proximal colon with a transition point at the splenic flexure. Findings are most pronounced at the cecum measuring 9.1 cm in diameter. There is no obvious obstructing mass. No small bowel dilatation. Findings are most suspicious for a focal colonic ileus. 2. 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 3. Probable degenerating cyst in the right ovary. 4. Ventral midline supraumbilical hernia containing omental fat. No evidence for strangulation. 5. Incidental/nonacute findings are listed in the report. Laboratory Results WBC 6.91 10^3/uL (3.29-11.43) 08/27/23 16:37 RBC 3.86 10^6/uL (3.85-5.65) 08/27/23 16:37 Hgb 10.30 g/dL (11.27-16.99) L 08/27/23 16:37 Hct 32.5 % (36-47) L 08/27/23 16:37 MCV 84.2 fl (85-98) L 08/27/23 16:37 MCH 26.7 pg (27-33) L 08/27/23 16:37 MCHC 31.7 g/dL (30-55) 08/27/23 16:37 RDW 14.6 % (12.1-15.1) 08/27/23 16:37 Plt Count 257 10^3/cmm (157-399) 08/27/23 16:37 MPV 10.0 fL (7.4-10.4) 08/27/23 16:37 Neut % (Auto) 61.5 % 08/27/23 16:37 Lymph % (Auto) 23.2 % 08/27/23 16:37 [place] % (Auto) 10.7 % 08/27/23 16:37 Eos % (Auto) 3.9 % 08/27/23 16:37 Baso % (Auto) 0.1 % 08/27/23 16:37 Neut # (Auto) 4.25 10^3/uL (1.8-7.7) 08/27/23 16:37 Lymph # (Auto) 1.6 10^3/uL (0.8-4.8) 08/27/23 16:37 [place] # (Auto) 0.7 10^3/uL (0.2-0.9) 08/27/23 16:37 Eos # (Auto) 0.3 10^3/uL (0.0-0.8) 08/27/23 16:37 Baso # (Auto) 0.0 10^3/uL (0.0-0.1) 08/27/23 16:37 Nucleated RBC % (auto) 0 % 08/27/23 16:37 Nucleated RBCs # 0.0 /100WBC 08/27/23 16:37 Sodium 136 mmol/L (136-145) 08/27/23 16:37 Potassium 3.3 mmol/L (3.5-5.1) L 08/27/23 16:37 Chloride 104 mmol/L (98-107) 08/27/23 16:37 Carbon Dioxide 22 mmol/L (22-29) 08/27/23 16:37 Anion Gap 13.3 (5-19) 08/27/23 16:37 BUN 10 mg/dL (6-20) 08/27/23 16:37 Creatinine 0.5 mg/dL (0.5-0.9) 08/27/23 16:37 GFR Calculation 136.6 mL/min (90-130) H 08/27/23 16:37 Glucose 131 mg/dL (65-115) H 08/27/23 16:37 Calculated Osmolality 283 mOsm/kg (285-295) L 08/27/23 16:37 Calcium 7.8 mg/dL (8.5-10.5) L 08/27/23 16:37 Total Bilirubin 0.2 mg/dL (0.15-1.2) 08/27/23 16:37 AST 58 U/L (0-32) H 08/27/23 16:37 ALT 156 U/L (0-33) H 08/27/23 16:37 Alkaline Phosphatase 270 U/L (35-105) H 08/27/23 16:37 C-Reactive Protein 42.2 mg/L (0.0-4.9) H 08/27/23 16:37 Total Protein 7.9 g/dL (6.6-8.7) 08/27/23 16:37 Albumin 3.9 g/dL (3.5-5.2) 08/27/23 16:37 Globulin 4.0 g/dL (1.3-4.6) 08/27/23 16:37 Urine Color Yellow (Yellow) 08/27/23 17:46 Urine Appearance Clear (CLEAR) 08/27/23 17:46 Urine pH 5 (5-7) 08/27/23 17:46 Ur Specific [place] 1.010 (1.005-1.030) 08/27/23 17:46 Urine Protein Neg (Negative) 08/27/23 17:46 Urine Glucose (UA) Norm (Normal) 08/27/23 17:46 Urine Ketones Negative (Negative) 08/27/23 17:46 Urine Blood Neg (Negative) 08/27/23 17:46 Urine Nitrate Negative (Negative) 08/27/23 17:46 Urine Bilirubin Neg (Negative) 08/27/23 17:46 Urine Urobilinogen Norm mg/dL (Negative) 08/27/23 17:46 Ur Leukocyte Esterase Trace (Negative) H 08/27/23 17:46 Urine RBC None /hpf (0-2) 08/27/23 17:46 Urine WBC 0-4 /hpf (0-5) H 08/27/23 17:46 Ur Squamous Epith Cells 10-15 /hpf (0-5) H 08/27/23 17:46 Amorphous Sediment Not Reportable 08/27/23 17:46 Urine Bacteria Trace /hpf (NONE) 08/27/23 17:46 Urine Trichomonas 1+ /hpf H 08/27/23 17:46 Urine Opiates Screen Negative ng/mL (Negative) 08/27/23 17:46 Ur Barbiturates Screen Negative ng/mL (Negative) 08/27/23 17:46 Ur Phencyclidine Scrn Negative ng/mL (Negative) 08/27/23 17:46 Ur Amphetamines Screen Negative ng/mL (Negative) 08/27/23 17:46 U Benzodiazepines Scrn Negative ng/mL (Negative) 08/27/23 17:46 Urine Cocaine Screen Negative ng/mL (Negative) 08/27/23 17:46 U Marijuana (THC) Screen Negative ng/mL (Negative) 08/27/23 17:46 All radiology interpretation(s) finalized by discharge Discharge Plan Discharge Patient Disposition: Home Clinical Impression: Abdominal pain Condition: Stable Prescriptions: New ondansetron 8 mg tablet,disintegrating 8 mg PO .q6 PRN (Reason: nausea and vomiting) Qty: 14 0RF diclofenac sodium 50 mg tablet,delayed release (DR/EC) 50 mg PO Q12H Qty: 20 0RF No Action Imodium 2 mg Capsule 2 mg PO Q6H PRN (Reason: Diarrhea) Pepto-Bismol 262 mg/15 mL Suspension 524 mg PO Q1H PRN (Reason: Indigestion) Rx Instructions: do not exceed 8 doses in a 24 hour period olanzapine 5 mg Tablet 5 mg PO QPM propranolol 20 mg Tablet 20 mg PO DAILY PRN (Reason: Anxiety) bupropion HCl 150 mg Tablet Extended Release 24 Hr 150 mg PO QAM topiramate 50 mg Tablet 50 mg PO BEDTIME Discharge Orders: Discharge ED (Routine); Ordered 08/27/23 Ordered By: Latoya Taylor Discharge Diet: Usual diet Discharge Activity: Increase activity as tolerated Patient Instructions: Abdominal Pain (ED), Opioid Safety, Pain Management Activity Restrictions/Additional Instructions: Thank you for choosing [facility] for your healthcare needs today. Please realize this is an emergency room and that we are providing you with a medical screening exam and this may not be complete and all inclusive of all the testing and or work up that you may need to determine your ailment or severity of your illness. You have been screened and evaluated and felt safe for discharge. Health conditions do change or evolve sometimes and as such it is important that you follow up with your Primary Doctor to be re checked, 3-5 days is a general good time frame for follow up. You are always welcome to return to the ED for re assessment if your symptoms are worsening or you have new concerns Coding Level of Care Code ED Adjunct Spanish Instructor for Sharon Dolan
[2023-08-27 17:29] VITALS: BP 149/101; PULSE 81; O2SAT 97
[2023-08-27 17:43] LABS: Alanine Aminotransferase 156 U/L (0-33); Albumin Level 3.9 g/dL (3.5-5.2); Alkaline Phosphatase 270 U/L (35-105); Anion Gap 13.3 (5-19); Aspartate Amino Transferase 58 U/L (0-32); Blood Urea Nitrogen 10 mg/dL (6-20); C Reactive Protein 42.2 mg/L (0.0-4.9); Calcium 7.8 mg/dL (8.5-10.5); Carbon Dioxide 22 mmol/L (22-29); Chloride 104 mmol/L (98-107); Creatinine Clr Calc Pharmacy 160.0031; Glomerular Filtration Rate 136.6 mL/min (90-130); Glucose 131 mg/dL (65-115); Osmolality Calculated 283 mOsm/kg (285-295); Potassium 3.3 mmol/L (3.5-5.1); Sodium 136 mmol/L (136-145); Total Bilirubin 0.2 mg/dL (0.15-1.2); Total Protein 7.9 g/dL (6.6-8.7)
--- NOTE | 2023-08-27 17:49 | CTR_ITS ---
PROCEDURE INFORMATION: Exam: CT Abdomen And Pelvis With Contrast Exam date and time: 08/27/2023 6:15 PM Age: 42 years old Clinical indication: Abdominal pain; Prior surgery; Surgery date: 6+ months; Surgery type: Gb, cyst removed from fallopian tube TECHNIQUE: Imaging protocol: Computed tomography of the abdomen and pelvis with contrast. Radiation optimization: All CT scans at this facility use at least one of these dose optimization techniques: automated exposure control; mA and/or kV adjustment per patient size (includes targeted exams where dose is matched to clinical indication); or iterative reconstruction. Contrast material: OMNI 350; Contrast volume: 100 ml; Contrast route: INTRAVENOUS (IV); COMPARISON: CT kidney stone [id number] 03/25/2022 4:30 PM RADIATION DOSE METRICS: Total DLP (mGy-cm): 780 FINDINGS: Lungs: Visualized lungs are clear. Pleural spaces: No pleural effusion. Heart: Visualized portions of the heart are mildly enlarged. Liver: Stable nodular contour of the liver. Mild enlargement of the liver measuring 22.0 cm, previously measured 23.5 cm (series 5, image 30). Gallbladder and bile ducts: Stable findings consistent with a previous cholecystectomy. No biliary ductal dilatation. Pancreas: The pancreas is unremarkable. No pancreatic ductal dilatation. Spleen: The spleen is unremarkable. Adrenal glands: The right and left adrenal glands are unremarkable. Kidneys and ureters: The right kidney is unremarkable. 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 Multiple areas of scarring in the left kidney. Stomach and bowel: Mild dilatation of the proximal colon with a transition point at the splenic flexure. Findings are most pronounced at the cecum measuring 9.1 cm in diameter. There is no obvious obstructing mass. No small bowel dilatation. No acute abnormality in the stomach. Appendix: The appendix is visualized and is unremarkable. No findings to suggest acute appendicitis. Intraperitoneal space: No free intraperitoneal air. No ascites. No loculated fluid collections to suggest an abscess. Vasculature: Mild atherosclerotic changes in the visualized arteries. No evidence for aortic aneurysm or aortic dissection. Hepatic veins, portal veins, splenic vein, and SMV are patent. Lymph nodes: No lymphadenopathy. Urinary bladder: The bladder is unremarkable. Reproductive: There is an arcuate uterus. Right ovarian cyst with an enhancing wall, possibly representing a degenerating ovarian cyst. This measures 1.4 x 1.0 cm (series 3, image 77). Stable calcifications in the left ovary, possibly due to sequela from a prior involuting cyst. Bones/joints: Degenerative changes in the spine and hips. Soft tissues: Ventral midline supraumbilical hernia containing omental fat. No evidence for strangulation. CT/CT abdomen pelvis w con* [id number] IMPRESSION: 1. Mild dilatation of the proximal colon with a transition point at the splenic flexure. Findings are most pronounced at the cecum measuring 9.1 cm in diameter. There is no obvious obstructing mass. No small bowel dilatation. Findings are most suspicious for a focal colonic ileus. 2. 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 3. Probable degenerating cyst in the right ovary. 4. Ventral midline supraumbilical hernia containing omental fat. No evidence for strangulation. 5. Incidental/nonacute findings are listed in the report.
[2023-08-27 18:15] VITALS: BP 147/88; PULSE 81; O2SAT 94
[2023-08-27] MEDS: iohexol 350 mg/mL 500 mL Btl (per mL) IV (18:19)
[2023-08-27 18:51] LABS: Add Urine Culture? No; Bacteria Urine TRACE /hpf; Bilirubin Urine Neg (Negative); Blood Urine Neg (Negative); Glucose Urine UA Norm (Normal); Ketones Urine Negative (Negative); Leukocyte Esterase Urine Trace (Negative); Nitrate Urine Negative (Negative); Protein Urine Neg (Negative); Trichomonas Urine 1+ /hpf; Urine Appearance Clear (CLEAR); Urine Color Yellow (Yellow); Urobilinogen Urine Norm (Negative); WBC Urine 0-4 /hpf (0-5); pH Urine 5 (5-7)
[2023-08-27 18:54] LABS: Amphetamines Screen Urine Negative (Negative); Barbiturates Screen Urine Negative (Negative); Benzodiazepines Screen Urine Negative (Negative); Cocaine Screen Urine Negative (Negative); Opiate Screen Urine Negative (Negative); PCP Screen Urine Negative (Negative); THC Screen Urine Negative (Negative)
[2023-08-27] MEDS: HYDROcodone-acetaminophen 10-325 mg Tablet 1 TAB PO (19:46)
[2023-08-27 20:06] VITALS: BP 147/88; PULSE 81; TEMP 36.7; O2SAT 94
== END 2023-08-27 20:07 | disposition home or self-care (01) ==
PROVIDERS: Emergency Provider Emergency Medicine
DX: R10.9 Unspecified abdominal pain (principal)
CPT/HCPCS: 74022; 74177; 80053; 80306; 81001; 85025; 86140; 99285; Q9967